=== PATIENT | male | born 1985 | race Caucasian/White ===

== ENCOUNTER 2025-01-18 11:51 | Emergency (ER) | payer BC, SELFPAY ==
[2025-01-18] VITALS (15 sets, daily range): BP systolic 114–133; BP diastolic 73–87; PULSE 58–90; RESP 18–26; TEMP 36.2–36.7; O2SAT 90–99; BMI 34.4
--- NOTE | 2025-01-18 11:09 | ECG_ITS ---
APPROVED REPORT Exam: Resting ECG HR:83 bpm ECG Measurements Heart Rate 83 AXES LA 132 P 29 QRSd 90 QRS 49 QT 376 T 67 QTc 415 Conclusion SINUS RHYTHM WITH SINUS ARRHYTHMIA NONSPECIFIC T-WAVE ABNORMALITY BORDERLINE ECG UNCONFIRMED REPORT Electronically signed by : СЕРГЕЙ GOMEZ, 01/21/2025 00:25:42
--- NOTE | 2025-01-18 11:44 | XR_ITS ---
FINAL REPORT TECHNIQUE: Single view chest CLINICAL HISTORY: vomiting FINDINGS: A single view of the chest was obtained. The heart and mediastinum are within normal limits. The lungs are clear. There is no pneumothorax. IMPRESSION: No acute cardiopulmonary process. Reviewed, Interpreted and Dictated by Virginie La MD Transcribed by Alison Kat Authenticated and [facility]
--- NOTE | 2025-01-18 11:52 | ED_ITS ---
<Statement entered by Yue Goldberg MD - 01/21/25 14:57> I was consulted by the NILESH, and we discussed the complexity of problems being addressed. I approved the treatment and management plan for this patient's care in the emergency department, thus performing a substantive portion of the medical decision making. Yue Goldberg MD Discharge Plan Disposition Patient Disposition: Xfer Short-Term Hosp Chief Complaint: Psychiatric Symptoms Referrals Follow up/Referrals: Provider,Referral, [Primary Care Provider] - See instructions Clinical Impressions Clinical Impression: Suicide attempt by drug ingestion, Overdose of salicylate, Intentional acetaminophen overdose Stand Alone Forms Stand Alone Forms: Transfer Record - ED Print Language Print Language: Croatian Discharge ED Provider: Levar Wagoner General Adult HPI <Sangita Jovel APRN - Last Filed: 01/18/25 18:40> General Chief complaint: Psychiatric Symptoms Stated complaint: suicide attempt Time Seen by Provider: 01/18/25 11:58 History of Present Illness HPI narrative: Patient is a 39-year-old male who presents to the ED via EMS for suicide attempt. Patient states he took a handful of multiple medications that are not his. He states he does not know the dosage of any other medications but reports that he took a handful of Zoloft, Flexeril, sertraline, BuSpar, levothyroxine and allergy medications. Related Data Allergies Allergy/AdvReac Type Severity Reaction Status Date / Time No Known Allergies Allergy Verified 01/18/25 11:53 PFSH <Sangita Jovel APRN - Last Filed: 01/18/25 18:40> PFS Disclaimer: The information contained in this section may have been updated after the patient was seen, as this information can be updated by other users. Social History (Updated 01/18/25 @ 18:40 by Sangita Jovel APRN) Smoking Status: Never smoker alcohol intake: never current occupational status: unemployed Travel in the last 8 weeks?: None Have you lived/traveled outside US in past 30 days?: No Contact w/someone who lives/traveled outside US past 30 days?: No Exposure to someone with infectious disease in past 14 days?: No Do you have a fever (greater than 100.4 F or 38 C)?: No Have you tested positive for COVID-19?: No Exposed to someone with COVID-19 in past 14 days?: No Do you have a sore throat?: No Do you have a cough?: No Do you have any weakness?: No Do you have any diarrhea?: No Are you experiencing any unusual bleeding?: No Do you have any muscle aches/pain?: No Do you have any abdominal pain?: No Are you experiencing loss of taste or smell?: No <Sangita Jovel APRN - Last Filed: 01/18/25 18:40> ROS Obtained: Yes Systems reviewed as appropriate & no additional complaints except as documented Physical Exam <Sangita Jovel APRN - Last Filed: 01/18/25 18:40> General General appearance: alert and in no apparent distress Head Head exam: atraumatic and normocephalic Eye Eye exam: Present normal appearance and PERRL ENT ENT exam: Present normal exam Neck Neck exam: Present normal inspection Chest Chest inspection: Present normal inspection and symmetric chest wall rise; Absent tenderness Respiratory Respiratory exam: Present normal lung sounds bilaterally Cardiovascular Cardiovascular exam: Present regular rate Abdominal Exam Abdominal exam: Present soft and normal bowel sounds; Absent tenderness Extremities Exam Extremities exam: Present normal inspection and full ROM Back Exam Back exam: Present normal inspection and full ROM Neurological Exam Neurological exam: Present alert and oriented X3 Psychiatric Psychiatric exam: Present normal affect and normal mood Skin Skin exam: Present warm and dry Medical Decision Making <Sangita Jovel APRN - Last Filed: 01/18/25 18:40> Medical Records Screening: Per USPSTF and CDC recommendations, given the prevalence of disease in our region, it is our hospital?s policy to screen for HIV and viral Hepatitis for all patients aged 18 and over and those with ongoing risk factors. To Inquiry Pt receiving controlled substance: No To was queried for this patient: No Vital Signs: 01/18/25 11:46 01/18/25 12:30 01/18/25 13:00 Temperature 97.2 F L Temperature Source Oral Pulse Rate 69 58 L Pulse Rate [Right] 90 Respiratory Rate 18 18 19 Blood Pressure 118/80 115/77 Blood Pressure [Right Arm] 133/87 Blood Pressure Mean 86 Blood Pressure Mean [Right Arm] 102 Blood Pressure Source [Right Arm] Automatic Cuff Blood Pressure Position [Right Arm] Sitting 02 Sat by Pulse Oximetry 99 98 98 Oxygen Delivery Method Room Air 01/18/25 13:30 01/18/25 14:00 01/18/25 14:30 Temperature Temperature Source Pulse Rate 60 69 77 Pulse Rate [Right] Respiratory Rate 20 26 H 21 Blood Pressure 118/74 117/73 122/81 Blood Pressure [Right Arm] Blood Pressure Mean Blood Pressure Mean [Right Arm] Blood Pressure Source [Right Arm] Blood Pressure Position [Right Arm] 02 Sat by Pulse Oximetry 97 98 98 Oxygen Delivery Method 01/18/25 15:00 01/18/25 15:30 01/18/25 16:00 Temperature Temperature Source Pulse Rate 68 65 62 Pulse Rate [Right] Respiratory Rate 21 26 H 20 Blood Pressure 117/74 119/81 123/78 Blood Pressure [Right Arm] Blood Pressure Mean 91 Blood Pressure Mean [Right Arm] Blood Pressure Source [Right Arm] Blood Pressure Position [Right Arm] 02 Sat by Pulse Oximetry 97 98 Oxygen Delivery Method 01/18/25 16:30 01/18/25 17:00 01/18/25 17:30 Temperature Temperature Source Pulse Rate 76 62 70 Pulse Rate [Right] Respiratory Rate 20 20 24 Blood Pressure 122/82 123/83 124/80 Blood Pressure [Right Arm] Blood Pressure Mean 92 91 88 Blood Pressure Mean [Right Arm] Blood Pressure Source [Right Arm] Blood Pressure Position [Right Arm] 02 Sat by Pulse Oximetry 97 Oxygen Delivery Method 01/18/25 18:00 01/18/25 18:30 Temperature Temperature Source Pulse Rate 61 73 Pulse Rate [Right] Respiratory Rate 24 21 Blood Pressure 118/79 114/79 Blood Pressure [Right Arm] Blood Pressure Mean 88 87 Blood Pressure Mean [Right Arm] Blood Pressure Source [Right Arm] Blood Pressure Position [Right Arm] 02 Sat by Pulse Oximetry 90 L 98 Oxygen Delivery Method Lab Data Lab Results 01/18/25 11:47: WBC 11.9 H, RBC 5.35, Hgb 16.0, Hct 47.4, MCV 88.6, MCH 29.9, MCHC 33.8, RDW 12.7, Plt Count 268, MPV 9.2, Neut % (Auto) 71.3, Lymph % (Auto) 22.0, Rice % (Auto) 5.0, Eos % (Auto) 0.6, Baso % (Auto) 0.6, Neut # (Auto) 8.5 H, Lymph # (Auto) 2.6, Rice # (Auto) 0.6, Eos # (Auto) 0.1, Baso # (Auto) 0.1, Sodium 140, Potassium 3.7, Chloride 108 H, Carbon Dioxide 13 L, Anion Gap 22.7 H , BUN 16, Creatinine 0.80, Estimated Creat Clear 193, Estimated GFR 108, Est GFR ( Amer) 131, Glucose 192 H, Calcium 9.8, Magnesium 2.0, Total Bilirubin 0.7, AST 41, ALT 37, Alkaline Phosphatase 103, Total Protein 7.9, Albumin 4.8, Globulin 3.1, Albumin/Globulin Ratio 1.5, TSH 0.71, Free T4 2.59 H, Salicylates 39.1 H*, Acetaminophen 82 H 01/18/25 11:47: Acetaminophen 82 H, Plasma/Serum Alcohol < 10 01/18/25 12:28: Urine Opiates Screen Negative, Urine Methadone Screen Negative, Ur Barbituates Screen Negative, Ur Phencyclidine Scrn Negative, Ur Amphetamines Screen Negative, U Benzodiazepines Scrn Negative, Urine Cocaine Screen Negative, U Marijuana (THC) Screen Negative 01/18/25 14:04: Salicylates 35.6 H* 01/18/25 18:24: Urine Color Yellow, Urine Appearance Clear, Urine pH 6.5, Ur Specific [place] 1.020, Urine Protein Trace, Urine Glucose (UA) Trace, Urine Ketones 3+, Urine Blood Negative, Urine Nitrate Negative, Urine Bilirubin Negative, Urine Urobilinogen 1.0, Ur Leukocyte Esterase Negative, Urine RBC Occasional, Urine WBC 5-10, Ur Squamous Epith Cells None, Urine Bacteria Trace 01/18/25 11:47 01/18/25 11:47 Orders (Tests/Meds): ED MEDICATIONS Generic Name Dose Route Start Last Admin Trade Name Freq PRN Reason Stop Dose Admin Sodium Bicarbonate 150 meq/ 1,150 mls @ 250 mls/hr 01/18/25 16:00 Sodium Chloride IV 02/17/25 15:59 .Q4H36M ALMA Sodium Chloride 10 ml 01/18/25 11:44 Sodium Chloride 0.9% 10ml Flush Syringe IV 02/17/25 11:43 NEEDED PRN Maintain IV Site Discontinued Medications Generic Name Dose Route Start Last Admin Trade Name Freq PRN Reason Stop Dose Admin Sodium Chloride 500 mls @ 999 mls/hr 01/18/25 11:44 01/18/25 11:54 Sod Chlor 0.9% 1000ml Bag IV 01/18/25 12:14 999 mls/hr .Q31M ONE Administration Sodium Bicarbonate 150 meq/ 1,150 mls @ 250 mls/hr 01/18/25 14:07 01/18/25 14:48 Dextrose IV 02/17/25 14:06 250 mls/hr .Q4H36M ALMA Administration Sodium Chloride 500 mls @ 999 mls/hr 01/18/25 17:48 01/18/25 17:51 Sod Chlor 0.9% 1000ml Bag IV 01/18/25 18:18 999 mls/hr .Q31M ONE Administration Ondansetron HCl 4 mg 01/18/25 12:03 01/18/25 12:07 Ondansetron 4mg/2ml Vial IV 01/18/25 12:04 4 mg ONCE ONE Administration Ondansetron HCl 4 mg 01/18/25 17:36 01/18/25 17:45 Ondansetron 4mg/2ml Vial IV 01/18/25 17:37 4 mg ONCE ONE Administration ORDERS Category Date Time Status Behavioral Health Consult [Consult to Behavioral Health Cons 01/18/25 11:54 Active ] [CONS] Stat CXR --portable [XR chest portable] Stat Exams 01/18/25 11:44 Completed Acetaminophen Stat Lab 01/18/25 11:47 Completed Acetaminophen Stat Lab 01/18/25 11:47 Completed CBC w/Auto Diff [Complete Blood Count Auto Diff] Stat Lab 01/18/25 11:47 Completed CMP [Comprehensive Metabolic Panel] Stat Lab 01/18/25 11:47 Completed Ethyl Alcohol Stat Lab 01/18/25 11:47 Completed Free T4 (Free Thyroxine) Stat Lab 01/18/25 11:47 Completed Magnesium Stat Lab 01/18/25 11:47 Completed Salicylate Stat Lab 01/18/25 11:47 Completed Salicylate Stat Lab 01/18/25 14:04 Completed TSH [Thyroid Stimulating Hormone] Stat Lab 01/18/25 11:47 Completed UDS [Drug Screen,Urine] Stat Lab 01/18/25 12:28 Completed Urinalysis and Microscopic Stat Lab 01/18/25 18:24 Completed EKG Request [ECG Request] Stat Y 01/18/25 17:36 Ordered Medical Decision Narrative: In summary, patient is a 39-year-old male with no significant PMHx who presents to the ED via EMS for suicide attempt. Patient states he took a handful of multiple medications that are not his. He states he does not know the dosage of any other medications but reports that he took a handful of Zoloft, Flexeril, sertraline, BuSpar, levothyroxine and allergy medications. Patient's estimates this was about 1.5 hours ago, has been vomiting for 1.5 hours. He reports a previous suicide attempt when he was a teenager by jumping off a building. He states at this time he remains suicidal and is not homicidal. Patient states today that his told him she would like a divorce. Denies fever, chills, headache, visual disturbances, chest pain, shortness of breath, abdominal pain. Denies being homicidal. Differential diagnosis include overdose, suicidal, homicidal, acetaminophen overdose, renal failure, among others. Interpreted NSR EKG as rate 83, QT 376, no stemi. I contacted poison control around 11:55 AM who advises to obtain lab work that I ordered, monitor for hypotension, bradycardia, respiratory depression and monitor for 11-18 hours. CBC remarkable for mild leukocytosis, WBC 11.9, stable H&H. CMP remarkable for carbon dioxide 13, anion gap 22.7, glucose 192, free T42.59, TSH 0.71. Salicylates 39.1, acetaminophen 82. Serum alcohol less than 10. Patient placed on bicarb drip for alkaline diuresis. Upon reassessment, patient continues to be hemodynamically stable, no vomiting at this time. 4 hour salicylate level 35.6, 4 hour acetaminophen 82. Due to patient needing psychiatric care and medical clearance after salicylate and acetaminophen levels decrease, and completion of poison control suggested monitoring time, we are attempting to transfer to [facility]. I spoke to Dr. Brink at [facility] who accepts the patient for a med telemetry. I discussed with patient that he will be transferred to [facility], he is agreeable to this and understands. He remains hemodynamically stable, he advises that he has no complaints at this time other than his throat is sore from vomiting earlier. Patient left in the care of Dr. Wagoner pending bed assignement at [facility] <Levar Wagoner MD - Last Filed: 01/18/25 18:53> Vital Signs: 01/18/25 11:46 01/18/25 12:30 01/18/25 13:00 Temperature 97.2 F L Temperature Source Oral Pulse Rate 69 58 L Pulse Rate [Right] 90 Respiratory Rate 18 18 19 Blood Pressure 118/80 115/77 Blood Pressure [Right Arm] 133/87 Blood Pressure Mean 86 Blood Pressure Mean [Right Arm] 102 Blood Pressure Source [Right Arm] Automatic Cuff Blood Pressure Position [Right Arm] Sitting 02 Sat by Pulse Oximetry 99 98 98 Oxygen Delivery Method Room Air 01/18/25 13:30 01/18/25 14:00 01/18/25 14:30 Temperature Temperature Source Pulse Rate 60 69 77 Pulse Rate [Right] Respiratory Rate 20 26 H 21 Blood Pressure 118/74 117/73 122/81 Blood Pressure [Right Arm] Blood Pressure Mean Blood Pressure Mean [Right Arm] Blood Pressure Source [Right Arm] Blood Pressure Position [Right Arm] 02 Sat by Pulse Oximetry 97 98 98 Oxygen Delivery Method 01/18/25 15:00 01/18/25 15:30 01/18/25 16:00 Temperature Temperature Source Pulse Rate 68 65 62 Pulse Rate [Right] Respiratory Rate 21 26 H 20 Blood Pressure 117/74 119/81 123/78 Blood Pressure [Right Arm] Blood Pressure Mean 91 Blood Pressure Mean [Right Arm] Blood Pressure Source [Right Arm] Blood Pressure Position [Right Arm] 02 Sat by Pulse Oximetry 97 98 Oxygen Delivery Method 01/18/25 16:30 01/18/25 17:00 01/18/25 17:30 Temperature Temperature Source Pulse Rate 76 62 70 Pulse Rate [Right] Respiratory Rate 20 20 24 Blood Pressure 122/82 123/83 124/80 Blood Pressure [Right Arm] Blood Pressure Mean 92 91 88 Blood Pressure Mean [Right Arm] Blood Pressure Source [Right Arm] Blood Pressure Position [Right Arm] 02 Sat by Pulse Oximetry 97 Oxygen Delivery Method 01/18/25 18:00 01/18/25 18:30 Temperature Temperature Source Pulse Rate 61 73 Pulse Rate [Right] Respiratory Rate 24 21 Blood Pressure 118/79 114/79 Blood Pressure [Right Arm] Blood Pressure Mean 88 87 Blood Pressure Mean [Right Arm] Blood Pressure Source [Right Arm] Blood Pressure Position [Right Arm] 02 Sat by Pulse Oximetry 90 L 98 Oxygen Delivery Method Lab Data Lab Results 01/18/25 11:47: WBC 11.9 H, RBC 5.35, Hgb 16.0, Hct 47.4, MCV 88.6, MCH 29.9, MCHC 33.8, RDW 12.7, Plt Count 268, MPV 9.2, Neut % (Auto) 71.3, Lymph % (Auto) 22.0, Rice % (Auto) 5.0, Eos % (Auto) 0.6, Baso % (Auto) 0.6, Neut # (Auto) 8.5 H, Lymph # (Auto) 2.6, Rice # (Auto) 0.6, Eos # (Auto) 0.1, Baso # (Auto) 0.1, Sodium 140, Potassium 3.7, Chloride 108 H, Carbon Dioxide 13 L, Anion Gap 22.7 H , BUN 16, Creatinine 0.80, Estimated Creat Clear 193, Estimated GFR 108, Est GFR ( Amer) 131, Glucose 192 H, Calcium 9.8, Magnesium 2.0, Total Bilirubin 0.7, AST 41, ALT 37, Alkaline Phosphatase 103, Total Protein 7.9, Albumin 4.8, Globulin 3.1, Albumin/Globulin Ratio 1.5, TSH 0.71, Free T4 2.59 H, Salicylates 39.1 H*, Acetaminophen 82 H 01/18/25 11:47: Acetaminophen 82 H, Plasma/Serum Alcohol < 10 01/18/25 12:28: Urine Opiates Screen Negative, Urine Methadone Screen Negative, Ur Barbituates Screen Negative, Ur Phencyclidine Scrn Negative, Ur Amphetamines Screen Negative, U Benzodiazepines Scrn Negative, Urine Cocaine Screen Negative, U Marijuana (THC) Screen Negative 01/18/25 14:04: Salicylates 35.6 H* 01/18/25 18:24: Urine Color Yellow, Urine Appearance Clear, Urine pH 6.5, Ur Specific [place] 1.020, Urine Protein Trace, Urine Glucose (UA) Trace, Urine Ketones 3+, Urine Blood Negative, Urine Nitrate Negative, Urine Bilirubin Negative, Urine Urobilinogen 1.0, Ur Leukocyte Esterase Negative, Urine RBC Occasional, Urine WBC 5-10, Ur Squamous Epith Cells None, Urine Bacteria Trace Orders (Tests/Meds): ED MEDICATIONS Generic Name Dose Route Start Last Admin Trade Name Freq PRN Reason Stop Dose Admin Sodium Bicarbonate 150 meq/ 1,150 mls @ 250 mls/hr 01/18/25 16:00 Sodium Chloride IV 02/17/25 15:59 .Q4H36M ALMA Sodium Chloride 10 ml 01/18/25 11:44 Sodium Chloride 0.9% 10ml Flush Syringe IV 02/17/25 11:43 NEEDED PRN Maintain IV Site Discontinued Medications Generic Name Dose Route Start Last Admin Trade Name Freq PRN Reason Stop Dose Admin Sodium Chloride 500 mls @ 999 mls/hr 01/18/25 11:44 01/18/25 11:54 Sod Chlor 0.9% 1000ml Bag IV 01/18/25 12:14 999 mls/hr .Q31M ONE Administration Sodium Bicarbonate 150 meq/ 1,150 mls @ 250 mls/hr 01/18/25 14:07 01/18/25 14:48 Dextrose IV 02/17/25 14:06 250 mls/hr .Q4H36M ALMA Administration Sodium Chloride 500 mls @ 999 mls/hr 01/18/25 17:48 01/18/25 17:51 Sod Chlor 0.9% 1000ml Bag IV 01/18/25 18:18 999 mls/hr .Q31M ONE Administration Ondansetron HCl 4 mg 01/18/25 12:03 01/18/25 12:07 Ondansetron 4mg/2ml Vial IV 01/18/25 12:04 4 mg ONCE ONE Administration Ondansetron HCl 4 mg 01/18/25 17:36 01/18/25 17:45 Ondansetron 4mg/2ml Vial IV 01/18/25 17:37 4 mg ONCE ONE Administration ORDERS Category Date Time Status Behavioral Health Consult [Consult to Behavioral Health Cons 01/18/25 11:54 Active ] [CONS] Stat CXR --portable [XR chest portable] Stat Exams 01/18/25 11:44 Completed Acetaminophen Stat Lab 01/18/25 11:47 Completed Acetaminophen Stat Lab 01/18/25 11:47 Completed CBC w/Auto Diff [Complete Blood Count Auto Diff] Stat Lab 01/18/25 11:47 Completed CMP [Comprehensive Metabolic Panel] Stat Lab 01/18/25 11:47 Completed Ethyl Alcohol Stat Lab 01/18/25 11:47 Completed Free T4 (Free Thyroxine) Stat Lab 01/18/25 11:47 Completed Magnesium Stat Lab 01/18/25 11:47 Completed Salicylate Stat Lab 01/18/25 11:47 Completed Salicylate Stat Lab 01/18/25 14:04 Completed TSH [Thyroid Stimulating Hormone] Stat Lab 01/18/25 11:47 Completed UDS [Drug Screen,Urine] Stat Lab 01/18/25 12:28 Completed Urinalysis and Microscopic Stat Lab 01/18/25 18:24 Completed EKG Request [ECG Request] Stat Y 01/18/25 17:36 Ordered Medical Decision Narrative: In summary, patient is a 39-year-old male with no significant PMHx who presents to the ED via EMS for suicide attempt. Patient states he took a handful of multiple medications that are not his. He states he does not know the dosage of any other medications but reports that he took a handful of Zoloft, Flexeril, sertraline, BuSpar, levothyroxine and allergy medications. Patient's estimates this was about 1.5 hours ago, has been vomiting for 1.5 hours. He reports a previous suicide attempt when he was a teenager by jumping off a building. He states at this time he remains suicidal and is not homicidal. Patient states today that his told him she would like a divorce. Denies fever, chills, headache, visual disturbances, chest pain, shortness of breath, abdominal pain. Denies being homicidal. Differential diagnosis include overdose, suicidal, homicidal, acetaminophen overdose, renal failure, among others. Interpreted NSR EKG as rate 83, QT 376, no stemi. I contacted poison control around 11:55 AM who advises to obtain lab work that I ordered, monitor for hypotension, bradycardia, respiratory depression and monitor for 11-18 hours. CBC remarkable for mild leukocytosis, WBC 11.9, stable H&H. CMP remarkable for carbon dioxide 13, anion gap 22.7, glucose 192, free T42.59, TSH 0.71. Salicylates 39.1, acetaminophen 82. Serum alcohol less than 10. Patient placed on bicarb drip for alkaline diuresis. Upon reassessment, patient continues to be hemodynamically stable, no vomiting at this time. 4 hour salicylate level 35.6, 4 hour acetaminophen 82. Due to patient needing psychiatric care and medical clearance after salicylate and acetaminophen levels decrease, and completion of poison control suggested monitoring time, we are attempting to transfer to [facility]. I spoke to Dr. Brink at [facility] who accepts the patient for a med telemetry. I discussed with patient that he will be transferred to [facility], he is agreeable to this and understands. He remains hemodynamically stable, he advises that he has no complaints at this time other than his throat is sore from vomiting earlier. Patient left in the care of Dr. Wagoner pending bed assignement at [facility] I was consulted by the NILESH, and we discussed the complexity of the problems being addressed. I approved the treatment and management plan for this patient's care in the Emergency Department, thus performing a substantive portion of the medical decision making. EKG independently interpreted, sinus rhythm ventricular rate 66 bpm with WI 159, QRS 93, QT 404 with nonspecific T wave changes, QT not prolonged. Independent interpretation of patient's workup with mild leukocytosis, anion gap metabolic acidosis with anion gap of 22, bicarb low at 13. Patient's urinalysis unconcerning other than pH 6.5 in the setting of salicylate toxicity with level 35.6. Acetaminophen elevated 82, this was stable on 4-hour. Toxicology [facility] was contacted by [employer] and patient was started on isotonic bicarbonate drip for alkalinization. Patient continuing to be nauseated and vomiting, Zofran administered. [facility] contacted and case discussed at length for observation for medical clearance prior to psychiatric inpatient admission. Graciously accepted for transfer. Levar Wagoner MD Critical Care <Sangita Jovel APRN - Last Filed: 01/18/25 18:40> Critical Care Time Critical Care Time: No <Levar Wagoner MD - Last Filed: 01/18/25 18:53> Critical Care Time Critical Care Time: Yes (meatabolic, psychiatric) Attestation: On 01/18/25, the high probability of a clinically significant, sudden or life threatening deterioration of the following system(s) required my full and direct attention, intervention and personal management. The time I documented below is in addition to time spent performing reported procedures but includes the following listed in this critical care notation. Total Time Total Critical Care Time: 60
[2025-01-18] MEDS: 0.9 % SODIUM CHLORIDE 1000ML 500 ML 999 ML IV ×2 (11:54→17:51)
[2025-01-18 11:55] LABS: Basophils # 0.1 K/mm3 (0-0.2); Basophils % 0.6 % (0.1-2.0); Eosinophils # 0.1 Kmm3 (0.0-0.4); Eosinophils % 0.6 % (0.1-12.0); Hematocrit 47.4 % (42.0-52.0); Lymphocytes # 2.6 K/mm3 (0.7-4.5); Mean Corpuscular HGB Conc 33.8 g/dL (31.8-35.4); Mean Corpuscular Hemoglobin 29.9 pg (27.0-31.2); Mean Corpuscular Volume 88.6 fl (80-94); Mean Platelet Volume 9.2 fl (7.4-10.4); Monocytes # 0.6 K/mm3 (0.1-1.0); Neutrophils # 8.5 K/mm3 (1.8-7.8); Neutrophils % 71.3 % (37.0-80.0); Nucleated Red Blood Cells # 0 10^3/uL; Nucleated Red Blood Cells % 0 %; Platelet Count 268 K/mm3 (142-424); Red Blood Count 5.35 M/mm3 (4.60-6.20); Red Cell Distribution Width 12.7 % (11.5-17.5); Red Cell Distribution Width-SD 41.1 fL; White Blood Count 11.9 K/mm3 (4.8-10.8)
[2025-01-18 11:59] LABS: Albumin Level 4.8 g/dl (3.5-5.0); Chloride 108 mmol/L (98-107); Sodium 140 mmol/L (136-145)
[2025-01-18 12:00] LABS: Potassium 3.7 mmoL/L (3.5-5.1)
[2025-01-18 12:02] LABS: Alanine Aminotransferase 37 U/L (12-78); Albumin/Globulin Ratio 1.5 (1.1-1.8); Alkaline Phosphatase 103 U/L (38-126); Anion Gap 22.7 mEq/L (5-15); Aspartate Amino Transferase 41 U/L (17-59); Bilirubin,Total 0.7 mg/dl (0.2-1.3); Blood Urea Nitrogen 16 mg/dl (9-20); Calcium 9.8 mg/dl (8.4-10.2); Carbon Dioxide 13 mmol/L (22.0-30.0); Creatinine Clearance Estimated 193 mL/min (50-200); Estimated Glomerular Filt Rate 108 ml/min (>60); GFR (African American) 131 ML/MIN (>60); Globulin 3.1 g/dL (1.3-3.2); Glucose 192 mg/dl (74-100); Total Protein,Serum 7.9 g/dl (6.3-8.2)
[2025-01-18 12:04] LABS: Ethyl Alcohol < 10 mg/dl (0-10)
[2025-01-18 12:05] LABS: Acetaminophen 82 ug/ml (10-30); Salicylate 39.1 mg/dL (2.0-20.0)
[2025-01-18] MEDS: ONDANSETRON 4MG/2ML VIAL 4 MG IV ×2 (12:07→17:45)
[2025-01-18 12:23] LABS: Free T4 (Free Thyroxine) 2.59 ng/dl (0.78-2.19)
[2025-01-18 12:34] LABS: Thyroid Stimulating Hormone 0.71 uIU/mL (0.465-4.68)
[2025-01-18 12:58] LABS: Barbiturates Screen,Urine Negative ng/ml (<200); Benzodiazepines Screen,Urine Negative ng/ml (<200)
[2025-01-18 12:59] LABS: Amphetamine/Metha Screen,Urine Negative ng/ml (<1000)
[2025-01-18 13:04] LABS: Cannabinoid Screen,Urine Negative ng/ml (<50); Methadone Screen,Urine Negative ng/ml (<300)
[2025-01-18 13:05] LABS: Cocaine Screen,Urine Negative ng/ml (<300)
[2025-01-18 13:08] LABS: Opiate Screen,Urine Negative ng/ml (<300)
[2025-01-18 13:09] LABS: Phencyclidine Screen,Urine Negative ng/ml (<25)
--- NOTE | 2025-01-18 13:47 | PC.NURSE ---
Pt's spouse updated on patient status with patient's permission. Spouses contact info: Carissa
[2025-01-18] MEDS: SODIUM BICARBONATE 150 MEQ in DEXTROSE 5 % IN WATER 1,000 ML 250 MEQ IV (14:48)
--- NOTE | 2025-01-18 14:55 | PC.NURSE ---
called and informed lab of acetaminophen level added to blood work
[2025-01-18 14:59] LABS: Salicylate 35.6 mg/dL (2.0-20.0)
--- NOTE | 2025-01-18 15:20 | PC.NURSE ---
emailed and faxed petition paperwork to [facility] for evaluation
--- NOTE | 2025-01-18 15:29 | PC.NURSE ---
Per provider pt will need a repeat urine sample collected. Pt had ambulated to the bathroom 10 minutes ago with ramos rod and had a bowel movement and voided. Pt educated that another urine sample will need to be collected as soon as he can provide one.
--- NOTE | 2025-01-18 15:40 | INFXCTL.NOTE ---
lab called and informed this nurse that the analyzer was being worked on so the tylenol level will be delayed by 30 minutes
[2025-01-18 15:52] LABS: Acetaminophen 82 ug/ml (10-30)
--- NOTE | 2025-01-18 16:10 | PC.NURSE ---
spoke to Parvez at [facility]. Since pt isnt medically cleared and needs a long observation time they wont be able to do his eval at this time. MD called hospitalist for admission. hospitalist suggested pt be transferred to [facility] to finish out obs time and then have psych.
--- NOTE | 2025-01-18 16:40 | PC.NURSE ---
Called [facility] for patient transfer per [employer] Sangita Jovel. They asked for us to fax over, labs, notes, face sheet, tests, and imaging. all of that is being faxed over now.
--- NOTE | 2025-01-18 16:52 | PC.NURSE ---
Paperwork did not fax, LIAN Sierra was on the phone with [facility] and they gave us a new fax number( [phone]). Just faxed the paperwork over waiting to see if it goes through.
--- NOTE | 2025-01-18 17:00 | PC.NURSE ---
This nurse called Lupe Sharpe at [facility] to ask about the petition paperwork since the patient is no longer going to be medically cleared and is going to need to be transferred. she stated that it was okay to back out of the petition at this time since since [facility] hasnt done the eval and the patient has a medical necessity to be observed for longer.
--- NOTE | 2025-01-18 17:08 | PC.NURSE ---
Registration confirmed that the fax sent.
--- NOTE | 2025-01-18 17:40 | ECG_ITS ---
APPROVED REPORT Exam: Resting ECG HR:66 bpm ECG Measurements Heart Rate 66 AXES GA 159 P 24 QRSd 93 QRS 14 QT 390 T -12 QTc 404 Conclusion Sinus rhythm Nonspecific T wave changes Electronically signed by : MILAGROS BELLO, 01/18/2025 19:29:54
--- NOTE | 2025-01-18 17:54 | PC.NURSE ---
pt accepted to [facility] by Dr. Brink at this time
--- NOTE | 2025-01-18 17:57 | PC.NURSE ---
Per provider after sodium bicarb 1000ML is completed order can be discontinued.
--- NOTE | 2025-01-18 18:00 | PC.NURSE ---
spoke to Ирина, intake psych nurse at [facility] and confirmed the patient did infact not need the petition since [facility] hadnt evaluated them and it was a medical transfer. she stated they would round on the patient inpatient and do a petition if needed.
--- NOTE | 2025-01-18 18:08 | PC.NURSE ---
Pending return call from [facility] to give care handoff report.
--- NOTE | 2025-01-18 18:15 | PC.NURSE ---
pt assigned a room of 125 on [facility]. transfer center stated a nurse would call for a report
[2025-01-18 18:30] LABS: Microscopic, Urine URINE MICROSCOPIC (MICROSCOPIC)
[2025-01-18 18:32] LABS: Appearance,Urine CLEAR (Clear); Bilirubin,Urine Negative (Negative); Blood, Urine Negative (Negative); Color,Urine YELLOW (Yellow); Glucose,Urine (UA) TRACE (Negative); Ketones,Urine 3+ (Negative); Leukocyte Esterase,Urine Negative (Negative); Nitrate,Urine Negative (Negative); PH,Urine 6.5 (5.0-8.5); Protein,Urine TRACE (Negative)
[2025-01-18 18:45] LABS: Bacteria,Urine Trace /lpf; RBC,Urine Occasional #/hpf (0-3)
--- NOTE | 2025-01-18 19:19 | PC.NURSE ---
updated poison control on pt transfer and status
== END 2025-01-18 19:17 | disposition short-term general hospital (02) ==
PROVIDERS: Nurse Practitioner; Emergency Provider Emergency Medicine
DX: T39.1X2A Poisoning by 4-Aminophenol derivatives, intentional self-harm, initial encounter (principal); T39.092A Poisoning by salicylates, intentional self-harm, initial encounter; T50.902A Poisoning by unspecified drugs, medicaments and biological substances, intentional self-harm, initial encounter; R11.2 Nausea with vomiting, unspecified
CPT/HCPCS: 71045; 80053; 80307; 80320; 80329; 81001; 83735; 84439; 84443; 85025; 93005; 96365; 96366; 96375; 96376; 99291; J2405; J7030; J7060